=== PATIENT | female | born 1970 | race Caucasian/White ===

== ENCOUNTER → 2017-03-24 | Outpatient (CLI) | payer OTHER | LOC: FIMAGING 08:48 | PROVIDERS: ATTEND Obstetrics & Gynecology | DX: Z12.31 Encounter for screening mammogram for malignant neoplasm of breast (principal) | CPT/HCPCS: G0202 ==

== ENCOUNTER → 2018-04-07 | Outpatient (CLI) | payer OTHER | LOC: FIMAGING 08:47 | DX: Z12.31 Encounter for screening mammogram for malignant neoplasm of breast (principal) ==